=== PATIENT | male | born 1965 | race Caucasian/White ===

== ENCOUNTER 2020-10-31 11:50 | Inpatient (IN) | payer MEDICAID, SELFPAY ==
[2020-10-31 13:17] VITALS: BP 198/96; PULSE 89; RESP 18; TEMP 36.6; O2SAT 98; BMI 32.8
--- NOTE | 2020-10-31 16:06 | ED.ABDPAIN ---
HPI - Abdominal Pain General Chief Complaint: Abdominal Pain Stated Complaint: abdominal pain Time Seen by Provider: 10/31/20 15:55 Source: patient Mode of arrival: ambulatory History of Present Illness HPI narrative: 54-year-old male with past medical history of diabetes presenting to the ED complaining of diffuse abdominal pain since this morning with associated nausea/dry heaving. Denies fever, chills, diarrhea/constipation, dysuria/hematuria, hx abdominal surgery, suspicious food intake MD elicited complaint: abdominal pain Related Data Allergies Allergy/AdvReac Type Severity Reaction Status Date / Time apple [APPLES] Allergy Unknown ITCHY MOUTH Unverified 08/05/20 17:26 tree nut [TREE NUT] Allergy Unknown ITCHY MOUTH Unverified 08/05/20 17:26 FRUIT, PITTED Allergy Unknown ITCHY MOUTH Uncoded 08/05/20 17:26 Review of Systems Review of Systems Constitutional: No Weight loss, No Fever, No Chills Cardiovascular: No Chest Pain, No SOB, No Edema, No Palpitations Respiratory: No Cough, No Sputum Gastrointestinal: + Nausea, No Vomiting, No Diarrhea, No Constipation, + Abdominal pain Genitourinary: No Dysuria, No Urinary Frequency, No Hematuria, No testicular/penile pain, No Flank Pain, No Urinary Flow Changes Musculoskeletal: No joint pain, No Myalgias, No Joint Swelling Skin: No Skin Lesions, No rash Yes all other systems are reviewed and are negative Physical Exam Vital Signs: Vital Signs: Last Vital Signs Temp 98.3 F 10/31/20 17:52 Pulse 63 10/31/20 17:52 Resp 18 10/31/20 17:52 BP 131/71 10/31/20 17:52 Pulse Ox 98 10/31/20 17:52 Body Mass Index 32.8 Const: General: cooperative and healthy appearing Orientation/consciousness: patient oriented x3 Limitations: no limitations HENMT: Head: Yes normal to inspection Ears: hearing grossly normal bilaterally General nose exam: Normal external nose present Face and sinus: Yes normal facial exam Eyes: General: appearance normal, both eyes and all related structures EOM: EOMs intact bilaterally Neck: Neck: Yes normal visual inspection and Yes no meningeal signs Resp: Effort & Inspection: normal respiratory effort Auscultation: clear to auscultation bilaterally, no rhonchi and no wheezes Cardio: Rate: regular rate Heart sounds: S1 normal heart sound present and S2 normal heart sound present GI: Inspection: Yes normal to inspection Palpation (GI): Soft to palpation, Tenderness to palpation present (GI) (diffusely), no guarding and not rigid : General: Yes no CVA tenderness Back/Spine/Pelvis: Back: no CVA tenderness Skin: Rashes: no rashes Wounds: no wounds Neuro: General: patient oriented x3 and no meningeal signs Gait exam (Neuro): Normal gait present Extrem: General: Yes normal to inspection Course Course Course Narrative: Mild leukocytosis of 13.4, VINCE with creatinine 1.58, BUN 19, ALT also elevated UA with blood/not infected CT showing left grade 2 hydroureteronephrosis and perinephric stranding secondary to a 4 mm obstructive UVJ calculus > urology consulted 1914- Dr. Gregg recommended admission, IVF, IV antibiotics, and will likely go to OR tomorrow MDM - Abdominal Pain Lab Data Result diagrams: 10/31/20 16:34 10/31/20 16:34 Labs: Lab Results 10/31/20 10/31/20 10/31/20 Range/Units 16:34 16:34 16:34 WBC 13.4 H (4.8-10.8) X10*3/uL RBC 5.08 (4.60-5.80) X10*6/uL Hgb 14.6 (14.0-18.0) g/dl Hct 43.9 (42-52) % MCV 86.4 (80-98) fL MCH 28.7 (27.0-33.0) pg MCHC 33.3 (31.0-36.0) g/dl RDW 13.1 (11.0-16.0) % Plt Count 259 (160-400) X10*3/uL MPV 10.0 (9.4-12.4) fL Immature Gran % (Auto) 0.5 H (0.0-0.4) % Neut % (Auto) 90.1 H (45-73) % Lymph % (Auto) 5.1 L (20-40) % [place] % (Auto) 4.1 (2-11) % Eos % (Auto) 0.1 (0-4) % Baso % (Auto) 0.1 (0-2) % Lymph # (Auto) 0.7 L (1.2-4.9) X10*3/uL [place] # (Auto) 0.6 (0.1-1.2) X10*3/uL Eos # (Auto) 0.0 (0.0-0.4) X10*3/uL Baso # (Auto) 0.0 (0.0-0.2) X10*3/uL Abs Immat Gran (auto) 0.07 H (0.00-0.03) X10*3/uL Absolute Neuts (auto) 12.1 H (2.0-8.3) X10*3/uL Absolute Nucleated RBC 0.000 (0.0-0.012) X10*3/uL Nucleated RBC % (auto) 0.0 (0.0-0.2) /100WBC Smear Tech's Comments VERIFIED Hold Blue Top SEE NOTE Sodium 138 (135-145) mmol/L Potassium 4.6 (3.3-5.1) mmol/l Chloride 103 (96-108) mmol/L Carbon Dioxide 25 (22-29) mmol/L Anion Gap 15 (12-20) BUN 19 H (9-16) mg/dL Creatinine 1.58 H (0.5-1.4) mg/dL Estim Creat Clear Calc 60.0 Estimated GFR 46 Random Glucose 166 H (60-115) mg/dL Calcium 9.0 (8.4-10.2) mg/dL Magnesium (1.6-2.6) mg/dL Total Bilirubin 1.0 (0.0-1.0) mg/dL Direct Bilirubin 0.4 (0.0-0.5) mg/dL AST 30 (5-37) U/L ALT 65 H (0-40) U/L Alkaline Phosphatase 71 (39-117) U/L Total Protein 7.3 (6.5-8.0) g/dL Albumin 4.6 (3.5-5.0) g/dL Lipase (8-78) U/L Urine Color Urine Appearance Urine pH (5.0-8.0) Ur Specific [place] (1.005-1.025) Urine Protein (NEG-TRACE) MG/DL Urine Glucose (UA) (NEG) MG/DL Urine Ketones (NEG) MG/DL Urine Blood (NEG) Urine Nitrite (NEG) Ur Leukocyte Esterase (NEG) Urine RBC (0) /HPF Urine WBC (0-4) /HPF Ur Squamous Epith Cells /LPF Urine Bacteria /LPF 10/31/20 10/31/20 Range/Units 16:34 16:34 WBC (4.8-10.8) X10*3/uL RBC (4.60-5.80) X10*6/uL Hgb (14.0-18.0) g/dl Hct (42-52) % MCV (80-98) fL MCH (27.0-33.0) pg MCHC (31.0-36.0) g/dl RDW (11.0-16.0) % Plt Count (160-400) X10*3/uL MPV (9.4-12.4) fL Immature Gran % (Auto) (0.0-0.4) % Neut % (Auto) (45-73) % Lymph % (Auto) (20-40) % [place] % (Auto) (2-11) % Eos % (Auto) (0-4) % Baso % (Auto) (0-2) % Lymph # (Auto) (1.2-4.9) X10*3/uL [place] # (Auto) (0.1-1.2) X10*3/uL Eos # (Auto) (0.0-0.4) X10*3/uL Baso # (Auto) (0.0-0.2) X10*3/uL Abs Immat Gran (auto) (0.00-0.03) X10*3/uL Absolute Neuts (auto) (2.0-8.3) X10*3/uL Absolute Nucleated RBC (0.0-0.012) X10*3/uL Nucleated RBC % (auto) (0.0-0.2) /100WBC Smear Tech's Comments Hold Blue Top Sodium (135-145) mmol/L Potassium (3.3-5.1) mmol/l Chloride (96-108) mmol/L Carbon Dioxide (22-29) mmol/L Anion Gap (12-20) BUN (9-16) mg/dL Creatinine (0.5-1.4) mg/dL Estim Creat Clear Calc Estimated GFR Random Glucose (60-115) mg/dL Calcium (8.4-10.2) mg/dL Magnesium 1.7 (1.6-2.6) mg/dL Total Bilirubin (0.0-1.0) mg/dL Direct Bilirubin (0.0-0.5) mg/dL AST (5-37) U/L ALT (0-40) U/L Alkaline Phosphatase (39-117) U/L Total Protein (6.5-8.0) g/dL Albumin (3.5-5.0) g/dL Lipase 22 (8-78) U/L Urine Color YELLOW Urine Appearance CLEAR Urine pH 5.5 (5.0-8.0) Ur Specific [place] >= 1.030 H (1.005-1.025) Urine Protein NEG (NEG-TRACE) MG/DL Urine Glucose (UA) 100 H (NEG) MG/DL Urine Ketones NEG (NEG) MG/DL Urine Blood 2+ H (NEG) Urine Nitrite NEG (NEG) Ur Leukocyte Esterase NEG (NEG) Urine RBC 5-9 H (0) /HPF Urine WBC 0 (0-4) /HPF Ur Squamous Epith Cells TRACE /LPF Urine Bacteria NONE /LPF Discharge Plan Discharge Clinical Impression: Hydronephrosis with renal calculous obstruction Patient Disposition: Admitted As Inpatient [facility] Past Medical History Attestation statement: The following information was validated with the patient. Medical History (Updated 10/31/20 @ 19:30 by TIMOTHY Baker) Diabetes mellitus, type 2 Social History Social History Advance Directives: No Advance Directives Information Provided: No
[2020-10-31 16:31] VITALS: BP 176/82; PULSE 65; RESP 16; TEMP 37; O2SAT 99
[2020-10-31] MEDS: ondansetron HCL 4 MG/2 ML VIAL IVPUSH (16:36)
[2020-10-31] MEDS: 0.9 % Sodium Chloride 1,000 ML 999 ML IVCONT ×2 (16:36→20:02)
[2020-10-31] MEDS: Ketorolac Tromethamine 15 MG/ML VIAL IVPUSH ×2 (16:36→22:04)
--- NOTE | 2020-10-31 16:40 | CT_ITS ---
EXAMINATION: CT ABDOMEN AND PELVIS WITHOUT CONTRAST CLINICAL INFORMATION: Diffuse abdominal pain. Nausea. COMPARISON: None. TECHNIQUE: Contiguous axial thin section helical images of the abdomen and pelvis were performed without oral or IV contrast. The data set was reformatted in the coronal and sagittal planes and reviewed on an independent workstation. DLP: 667 mGy-cm. FINDINGS: The visualized lung bases are clear. The visualized portions of the heart are unremarkable. There is a small hiatal hernia. The liver is of normal size and mild diffuse decreased attenuation without focal lesions nor intrahepatic biliary ductal dilation. A normal gallbladder is identified. There is no wall thickening or discernible pericholecystic fluid. The spleen, pancreas, adrenal glands are unremarkable. Both kidneys are of normal size and attenuation. There is left grade 2 hydroureteronephrosis with left perinephric stranding. There is a 4 mm obstructive left UVJ calculus. There is no abdominal free fluid. There is neither mesenteric nor retroperitoneal lymphadenopathy. Normal unopacified loops of small and large bowel are identified. There is no pelvic free fluid. The urinary bladder is unremarkable. There is neither pelvic nor inguinal lymphadenopathy. Bone windows: Neither sclerotic nor lytic bone lesions are identified. CT/CT abdomen pelvis wo con IMPRESSION: Left grade 2 hydroureteronephrosis and perinephric stranding secondary to a 4 mm obstructive UVJ calculus. Hepatic steatosis. Automated exposure control (Care Dose) Adjustment of the mA and/or kv according to patient size (this includes techniques or standardized protocols for targeted exams where dose is matched to indication / reason for exam; i.e. extremities or head).
[2020-10-31 16:46] LABS: Basophils Percent Auto 0.1 % (0-2); Eosinophils Percent Auto 0.1 % (0-4); Hematocrit 43.9 % (42-52); Hemoglobin 14.6 g/dl (14.0-18.0); Imm Gran Abs Auto 0.07 X10*3/uL (0.00-0.03); Imm Gran Pct Auto 0.5 % (0.0-0.4); Lymphocytes Absolute Auto 0.7 X10*3/uL (1.2-4.9); Lymphocytes Percent Auto 5.1 % (20-40); MANUAL DIFF FLAG SCAN; Mean Corpuscular HGB Conc 33.3 g/dl (31.0-36.0); Mean Corpuscular Hemoglobin 28.7 pg (27.0-33.0); Mean Corpuscular Volume 86.4 fL (80-98); Monocytes Absolute Auto 0.6 X10*3/uL (0.1-1.2); Monocytes Percent Auto 4.1 % (2-11); Neutrophils Absolute Auto 12.1 X10*3/uL (2.0-8.3); Neutrophils Percent Auto 90.1 % (45-73); Platelet Count 259 X10*3/uL (160-400); Red Blood Count 5.08 X10*6/uL (4.60-5.80); Red Cell Distribution Width 13.1 % (11.0-16.0); SCAN SMEAR FLAG 1; White Blood Count 13.4 X10*3/uL (4.8-10.8)
[2020-10-31 16:50] LABS: Glucose Urine UA 100 MG/DL (NEG); Leukocyte Esterase Urine NEG (NEG); Nitrite Urine NEG (NEG); PH 5.5 (5.0-8.0); Specific Gravity - Urine >= 1.030 (1.005-1.025); Urine Blood 2+ (NEG); Urine Ketones NEG (NEG); Urine Protein NEG (NEG-TRACE)
[2020-10-31 16:51] LABS: Appearance Urine CLEAR; Color Urine YELLOW
[2020-10-31 17:03] LABS: Squamous Epithelial Cell Urine TRACE /LPF; WBC Urine 0 /HPF (0-4)
[2020-10-31 17:20] LABS: Alanine Aminotransferase 65 U/L (0-40); Albumin Level 4.6 g/dL (3.5-5.0); Alkaline Phosphatase 71 U/L (39-117); Anion Gap 15 (12-20); Aspartate Amino Transferase 30 U/L (5-37); Bilirubin Direct 0.4 mg/dL (0.0-0.5); Blood Urea Nitrogen 19 mg/dL (9-16); Carbon Dioxide 25 mmol/L (22-29); Chloride 103 mmol/L (96-108); Estimated Glomerular Filt Rate 46; Glucose Random 166 mg/dL (60-115); Lipase 22 U/L (8-78); Magnesium 1.7 mg/dL (1.6-2.6); Potassium 4.6 mmol/l (3.3-5.1); Sodium 138 mmol/L (135-145); Total Protein 7.3 g/dL (6.5-8.0)
[2020-10-31 17:29] LABS: SLIDE REVIEW VERIFIED
[2020-10-31 17:52] VITALS: BP 131/71; PULSE 63; RESP 18; TEMP 36.8; O2SAT 98
--- NOTE | 2020-10-31 19:48 | PM.IMHP ---
History of Present Illness Date of Service: 10/31/20 Chief Complaint: Abdominal pain 54 y/o male with PMHx of DM and MARIO who presented from home due to abdominal pain. Per history provided by the patient, today woke up with a severe pain in the left side of his abdomen, none radiating, not associated with fever, chest pain, SOB or difficulty urinating. Patient denies any hx of previous kidney stones in the past. On presentation patient was noted to be hypertensive which improved with pain control to 131/71 mmHg and HR of 63. No evidence of fever, leukocytosis of 13.8 with left shift, creatinine of 1.58, CT abdomen showing left ureteral obstructing stone of 4 mm with associated hydroureteronephrosis and fat stranding, Ua negative for UTI. Patient was given one dose of Rocephin, flomax, fluids and pain control. Urology was consulted per ED Dr Gregg who recommends medicine admission and he will be a data quality consultant in the am for planned procedure. Patient seen and examined at the bedside, laying down in bed in no acute distress. ROS as above otherwise negative. Physical exam unremarkable. PMHX; DM and MARIO PSX; none Toxic habits: no hx of alcohol abuse, smoking or IVDA Review of Systems Constitutional: Constitutional: Reports as per [facility] Medical History Diabetes mellitus, type 2 Social History Advance Directives: No Advance Directives Information Provided: No Meds Allergies Allergy/AdvReac Type Severity Reaction Status Date / Time apple [APPLES] Allergy Unknown ITCHY MOUTH Unverified 08/05/20 17:26 tree nut [TREE NUT] Allergy Unknown ITCHY MOUTH Unverified 08/05/20 17:26 FRUIT, PITTED Allergy Unknown ITCHY MOUTH Uncoded 08/05/20 17:26 Physical Exam Vital Signs and Narrative: Vital Signs: Last Vital Signs Temp 98.3 F 10/31/20 17:52 Pulse 63 10/31/20 17:52 Resp 18 10/31/20 17:52 BP 131/71 10/31/20 17:52 Pulse Ox 98 10/31/20 17:52 Body Mass Index 32.8 Const: General: cooperative, comfortable and no acute distress Orientation/consciousness: oriented to person, oriented to place and oriented to time HENMT: Head: Yes normal to inspection Eyes: General: appearance normal, both eyes and all related structures Neck: Yes normal visual inspection Chest: Chest palpation & inspection: normal inspection of the chest Resp: Effort & Inspection: normal respiratory effort Auscultation: clear to auscultation bilaterally Cardio: Jugular venous distension: no JVD Rate: regular rate Rhythm: regular rhythm Heart sounds: S1 normal heart sound present and S2 normal heart sound present GI: Inspection: Yes normal to inspection Skin: General skin exam: no rashes or lesions noted Neuro: General: oriented to person, oriented to place and oriented to time Cognition (Neuro): normal cognition Results Labs CBC and Chem 7: 10/31/20 16:34 10/31/20 16:34 Labs: Laboratory Results - last 24 hr 10/31/20 10/31/20 10/31/20 16:34 16:34 16:34 MCV 86.4 MCH 28.7 MCHC 33.3 RDW 13.1 Plt Count 259 MPV 10.0 Immature Gran % (Auto) 0.5 H Neut % (Auto) 90.1 H Lymph % (Auto) 5.1 L [place] % (Auto) 4.1 Eos % (Auto) 0.1 Baso % (Auto) 0.1 Lymph # (Auto) 0.7 L [place] # (Auto) 0.6 Eos # (Auto) 0.0 Baso # (Auto) 0.0 Abs Immat Gran (auto) 0.07 H Absolute Neuts (auto) 12.1 H Absolute Nucleated RBC 0.000 Nucleated RBC % (auto) 0.0 Smear Tech's Comments VERIFIED Hold Blue Top SEE NOTE Anion Gap 15 Estim Creat Clear Calc 60.0 Estimated GFR 46 Random Glucose 166 H Calcium 9.0 Magnesium Total Bilirubin 1.0 Direct Bilirubin 0.4 AST 30 ALT 65 H Alkaline Phosphatase 71 Total Protein 7.3 Albumin 4.6 Lipase Urine Color Urine Appearance Urine pH Ur Specific [place] Urine Protein Urine Glucose (UA) Urine Ketones Urine Blood Urine Nitrite Ur Leukocyte Esterase Urine RBC Urine WBC Ur Squamous Epith Cells Urine Bacteria 10/31/20 10/31/20 16:34 16:34 MCV MCH MCHC RDW Plt Count MPV Immature Gran % (Auto) Neut % (Auto) Lymph % (Auto) [place] % (Auto) Eos % (Auto) Baso % (Auto) Lymph # (Auto) [place] # (Auto) Eos # (Auto) Baso # (Auto) Abs Immat Gran (auto) Absolute Neuts (auto) Absolute Nucleated RBC Nucleated RBC % (auto) Smear Tech's Comments Hold Blue Top Anion Gap Estim Creat Clear Calc Estimated GFR Random Glucose Calcium Magnesium 1.7 Total Bilirubin Direct Bilirubin AST ALT Alkaline Phosphatase Total Protein Albumin Lipase 22 Urine Color YELLOW Urine Appearance CLEAR Urine pH 5.5 Ur Specific [place] >= 1.030 H Urine Protein NEG Urine Glucose (UA) 100 H Urine Ketones NEG Urine Blood 2+ H Urine Nitrite NEG Ur Leukocyte Esterase NEG Urine RBC 5-9 H Urine WBC 0 Ur Squamous Epith Cells TRACE Urine Bacteria NONE Imaging Radiologist's Impressions: Impressions Abdomen/Pelvis CT 10/31/20 16:40 IMPRESSION: Left grade 2 hydroureteronephrosis and perinephric stranding secondary to a 4 mm obstructive UVJ calculus. Hepatic steatosis. Automated exposure control (Care Dose) Adjustment of the mA and/or kv according to patient size (this includes techniques or standardized protocols for targeted exams where dose is matched to indication / reason for exam; i.e. extremities or head). Assessment and Plan (1) Hydronephrosis with renal calculous obstruction: Status: Acute Continue with IV hydration Pain control Will not continue with antbx as there is no evidence of underlying infection Rest of the management per urology (2) MARIO (obstructive sleep apnea): Status: Acute continue with CPAP at night (3) Diabetes mellitus, type 2: Status: Acute Insulin regimen Hold PO hypoglycemic meds
[2020-10-31] MEDS: cefTRIAXone sodium 1 GM in 0.9 % Sodium Chloride 50 ML IV (20:01)
[2020-10-31] MEDS: Tamsulosin HCL 0.4 MG CAPSULE PO (20:01)
[2020-10-31 20:28] LABS: COVID-19 Test Negative (Negative)
[2020-10-31] MEDS: 0.9 % Sodium Chloride 1,000 ML 100 ML IVCONT (20:56)
[2020-10-31] MEDS: Heparin Sodium,Porcine 5,000 UNIT/ML VIAL 5000 UNIT SUBCUT (20:57)
[2020-10-31 21:16] LABS: Glucose, Whole Blood 107 mg/dL (60-115)
--- NOTE | 2020-10-31 22:26 | PC.NURSE ---
Pt requested and given night time snack of crackers w/ peanut butter, milk, ate 100%. Medicated per emar for 810 llu abd pain. pending bed assignment/uro consult in AM. Pt aware and agreeable to plan of care. Independent w/ home cpap.
[2020-10-31 22:28] VITALS: BP 124/83; PULSE 87; RESP 16; TEMP 36.7; O2SAT 98
[2020-11-01] VITALS (10 sets, daily range): BP systolic 112–149; BP diastolic 59–86; PULSE 54–61; RESP 14–20; TEMP 36–36.6; O2SAT 95–99; BMI 32.8
[2020-11-01] MEDS: Heparin Sodium,Porcine 5,000 UNIT/ML VIAL 5000 UNIT SUBCUT (06:32)
[2020-11-01 07:02] LABS: MANUAL DIFF FLAG NO
[2020-11-01 07:22] LABS: Basophils Percent Auto 0.3 % (0-2); Eosinophils Absolute Auto 0.2 X10*3/uL (0.0-0.4); Eosinophils Percent Auto 2.5 % (0-4); Hematocrit 38.4 % (42-52); Hemoglobin 12.4 g/dl (14.0-18.0); Imm Gran Abs Auto 0.02 X10*3/uL (0.00-0.03); Imm Gran Pct Auto 0.3 % (0.0-0.4); Lymphocytes Absolute Auto 1.1 X10*3/uL (1.2-4.9); Mean Corpuscular HGB Conc 32.3 g/dl (31.0-36.0); Mean Corpuscular Hemoglobin 28.2 pg (27.0-33.0); Mean Corpuscular Volume 87.5 fL (80-98); Monocytes Absolute Auto 0.6 X10*3/uL (0.1-1.2); Monocytes Percent Auto 9.6 % (2-11); Neutrophils Absolute Auto 4.4 X10*3/uL (2.0-8.3); Neutrophils Percent Auto 69.3 % (45-73); Platelet Count 198 X10*3/uL (160-400); Red Blood Count 4.39 X10*6/uL (4.60-5.80); Red Cell Distribution Width 13.2 % (11.0-16.0); White Blood Count 6.4 X10*3/uL (4.8-10.8)
[2020-11-01 07:39] LABS: Anion Gap 12 (12-20); Blood Urea Nitrogen 21 mg/dL (9-16); Calcium 7.8 mg/dL (8.4-10.2); Carbon Dioxide 24 mmol/L (22-29); Chloride 108 mmol/L (96-108); Creatinine Clr Calc Pharmacy 51.3; Estimated Glomerular Filt Rate 39; Glucose Random 135 mg/dL (60-115); Potassium 4.7 mmol/l (3.3-5.1); Sodium 139 mmol/L (135-145)
--- NOTE | 2020-11-01 09:59 | P.CNUR_ITS ---
History of Present Illness Consult details Consult date: 11/01/20 Narrative: 54-year-old male. Admitted 11/01/2020. Had 2 days of left-sided pain down his flank to his anterior abdomen. Nausea and dry heaving. Denies fevers chills or hematuria. None diabetic. White cell count on admission 13.8 with left shift. Creatinine 1.6. CT shows distal left ureteric obstructing stone 4 mm with associated hydroureteronephrosis. Discussion today regarding intervention. Currently pain is well managed at 12/29. Recommend ureteroscopy, laser lithotripsy, stone basketing and stent placement. [facility] Past Medical History Medical History (Updated 10/31/20 @ 19:56 by Mauricio Dickinson MD) Diabetes mellitus, type 2 Social History Social History Alcohol intake: never Smoked in Last 30 Days: No Use of substances other than those prescribed or required for medical reasons: No Advance Directives: No Advance Directives Information Provided: No Meds Allergies Allergy/AdvReac Type Severity Reaction Status Date / Time apple [APPLES] Allergy Unknown ITCHY MOUTH Unverified 08/05/20 17:26 tree nut [TREE NUT] Allergy Unknown ITCHY MOUTH Unverified 08/05/20 17:26 FRUIT, PITTED Allergy Unknown ITCHY MOUTH Uncoded 08/05/20 17:26 Home Medications Medication Instructions Recorded Confirmed Type metformin 1,000 mg PO BID 10/31/20 10/31/20 History sitagliptin [Januvia] 100 mg PO DAILY 10/31/20 10/31/20 History Physical Exam Vital Signs: Vital Signs: Last Vital Signs Temp 97 F 11/01/20 08:00 Pulse 60 11/01/20 08:00 Resp 20 11/01/20 08:00 BP 140/86 H 11/01/20 08:00 Pulse Ox 99 11/01/20 08:00 Body Mass Index 32.8 Const: General: cooperative, healthy appearing, comfortable and no acute distress Nutritional Appearance: average body habitus Orientation/consciousness: oriented to person, oriented to place and oriented to time Eyes: General: appearance normal, both eyes and all related structures Chest: Chest palpation & inspection: normal inspection of the chest Resp: Effort & Inspection: normal respiratory effort Cardio: Rate: regular rate GI: Inspection: Yes normal to inspection Skin: Hair: normal Neuro: General: oriented to person, oriented to place and oriented to time Extrem: General: Yes normal to inspection Results Labs Result diagrams: 11/01/20 06:56 11/01/20 06:56 Labs: Abnormal lab results 10/31/20 10/31/20 10/31/20 Range/Units 16:34 16:34 16:34 WBC 13.4 H (4.8-10.8) X10*3/uL RBC (4.60-5.80) X10*6/uL Hgb (14.0-18.0) g/dl Hct (42-52) % Immature Gran % (Auto) 0.5 H (0.0-0.4) % Neut % (Auto) 90.1 H (45-73) % Lymph % (Auto) 5.1 L (20-40) % Lymph # (Auto) 0.7 L (1.2-4.9) X10*3/uL Abs Immat Gran (auto) 0.07 H (0.00-0.03) X10*3/uL Absolute Neuts (auto) 12.1 H (2.0-8.3) X10*3/uL BUN 19 H (9-16) mg/dL Creatinine 1.58 H (0.5-1.4) mg/dL Random Glucose 166 H (60-115) mg/dL Calcium (8.4-10.2) mg/dL ALT 65 H (0-40) U/L Ur Specific [place] >= 1.030 H (1.005-1.025) Urine Glucose (UA) 100 H (NEG) MG/DL Urine Blood 2+ H (NEG) Urine RBC 5-9 H (0) /HPF 11/01/20 11/01/20 Range/Units 06:56 06:56 WBC (4.8-10.8) X10*3/uL RBC 4.39 L (4.60-5.80) X10*6/uL Hgb 12.4 L (14.0-18.0) g/dl Hct 38.4 L (42-52) % Immature Gran % (Auto) (0.0-0.4) % Neut % (Auto) (45-73) % Lymph % (Auto) 18.0 L (20-40) % Lymph # (Auto) 1.1 L (1.2-4.9) X10*3/uL Abs Immat Gran (auto) (0.00-0.03) X10*3/uL Absolute Neuts (auto) (2.0-8.3) X10*3/uL BUN 21 H (9-16) mg/dL Creatinine 1.85 H (0.5-1.4) mg/dL Random Glucose 135 H (60-115) mg/dL Calcium 7.8 L D (8.4-10.2) mg/dL ALT (0-40) U/L Ur Specific [place] (1.005-1.025) Urine Glucose (UA) (NEG) MG/DL Urine Blood (NEG) Urine RBC (0) /HPF Short CBC 10/31/20 11/01/20 Range/Units 16:34 06:56 WBC 13.4 H 6.4 (4.8-10.8) X10*3/uL Hgb 14.6 12.4 L (14.0-18.0) g/dl Hct 43.9 38.4 L (42-52) % Plt Count 259 198 (160-400) X10*3/uL BMP 10/31/20 11/01/20 16:34 06:56 Sodium 138 139 Potassium 4.6 4.7 Chloride 103 108 Carbon Dioxide 25 24 BUN 19 H 21 H Creatinine 1.58 H 1.85 H Calcium 9.0 7.8 L D Liver Function 10/31/20 Range/Units 16:34 Total Bilirubin 1.0 (0.0-1.0) mg/dL Direct Bilirubin 0.4 (0.0-0.5) mg/dL AST 30 (5-37) U/L ALT 65 H (0-40) U/L Alkaline Phosphatase 71 (39-117) U/L Albumin 4.6 (3.5-5.0) g/dL Urine 10/31/20 Range/Units 16:34 Urine Color YELLOW Urine Appearance CLEAR Urine pH 5.5 (5.0-8.0) Ur Specific [place] >= 1.030 H (1.005-1.025) Urine Protein NEG (NEG-TRACE) MG/DL Urine Glucose (UA) 100 H (NEG) MG/DL All other labs normal. Left grade 2 hydroureteronephrosis and perinephric stranding secondary to a 4 mm obstructive UVJ calculus Assessment and Plan (1) Hydronephrosis with renal calculous obstruction: Status: Acute Ureteroscopy We discussed the nature of the decision and reasonable alternatives for performing the above surgery. Interventions include chemical dissolution, ESWL, ureteroscopy with laser lithotripsy and stent placement, PCNL. Options such as medical therapy were discussed. The relative uncertainties and benefits related to each alternate procedure were adequately discussed. General surgical risks including, but not limited to, pain, bleeding, infection, myocardial infarction, pulmonary embolus, deep vein thrombosis and cerebrovascular accident which may result in further hospitalization were discussed. Full disclosure of the procedure as well as all major risks, benefits and complications were discussed including but not limited to damage to the urethra, bladder and kidney infection, damage to the ureter, stent migration or malposi tion, scarring to the renal pelvis, remnant stone fragments, subsequent stone passage with need for secondary procedures. The overall secondary procedure rate is approximately 10-15%. The success rate of the procedure was discussed. Success of the procedure in the short-term does not necessarily guarantee that long-term success will be maintained. Suitable follow up will need to be maintained. The patient showed understanding of discussion and wishes to proceed with - cystoscopy, retrograde, ureteroscopy, possible lithotripsy/stone basketing and stent on the left side
[2020-11-01] MEDS: 0.9 % Sodium Chloride Flush 3 ML SYRINGE IVFLUSH (10:04)
[2020-11-01] MEDS: 0.9 % Sodium Chloride 1,000 ML 100 ML IVCONT (10:04)
[2020-11-01 10:30] LABS: Glucose, Whole Blood 136 mg/dL (60-115)
--- NOTE | 2020-11-01 11:02 | MHC.CM.PN ---
PT 10/31/20, PT WILL DISCHARGE TONIGHT OR TOMORROW AFTER BLOCKED KIDNEY STONE REMOVAL, HOME W/NO SERVICES, TO TRANSPORT PT. SPOUSE: BAYLEE BARNES [phone]. DME: CPAP W/ JULIO, PT HAS WITH HIM AT BEDSIDE.
--- NOTE | 2020-11-01 11:50 | MHC.SHP ---
Pre-Procedural Eval Section A The patient is an INPATIENT: Yes Changes since office visit: No Cold of Flu in the past 2 weeks, No New Medical Problems, No Changes in Medication and No Patient answered all questions The History & Physical has been completed within 30 days and I have reviewed it.: Yes Section B Chief Complaint: obstructive uropathy Allergies: Allergies Allergy/AdvReac Type Severity Reaction Status Date / Time apple [APPLES] Allergy Unknown ITCHY MOUTH Unverified 08/05/20 17:26 tree nut [TREE NUT] Allergy Unknown ITCHY MOUTH Unverified 08/05/20 17:26 FRUIT, PITTED Allergy Unknown ITCHY MOUTH Uncoded 08/05/20 17:26 Plan Patient has been examined and remains a candidate for the planned procedure
[2020-11-01] MEDS: levoFLOXacin 500 MG TABLET PO (12:12)
[2020-11-01] MEDS: Lactated Ringers 1,000 ML 50 ML IVCONT (12:17)
[2020-11-01 12:19] LABS: Glucose, Whole Blood 118 mg/dL (60-115)
--- NOTE | 2020-11-01 12:21 | P.CONAN_ITS ---
[facility] Past Medical History Medical History Diabetes mellitus, type 2 Surgical History Surgical History Hx of colonoscopy Social History Social History Household Members: Spouse and Children Housing: House Do you presently have visiting nurse or other home services: No Alcohol intake: never Smoking Status: Former smoker Tobacco Type: Cigarette Packs Per Day: 1 Cigarettes Per Day: 20.0 Years Smoked: 10 Smoked in Last 30 Days: No Smoking Quit Date: 11/19/1994 Patient Interested in Nicotine Replacement: No Patient Given Instructions on How to Stop Smoking: No Second Hand Smoke Exposure: No Use of substances other than those prescribed or required for medical reasons: Yes Substance Use Type: Marijuana Substance Use Frequency: Daily Last Used Substance: Days (ago) Currently Displaying Signs/Symptoms of Drug Intoxication Withdrawal: No Any prior treatment program specific to substance use: No Have you been hit, kicked, punched, or otherwise hurt by someone within the past year? If so, by whom?: No Do you feel safe in your current relationship?: Yes Is there a partner from a previous relationship who is making you feel unsafe now?: No Are you made to feel afraid or neglected: No Advance Directives: No (Unsure) Advance Directives Information Provided: No Do you have thoughts of harming others: None Do you have a plan to hurt others: No Plan Recently lost weight without trying: No service: No Current occupational status: employed Meds Allergies Allergy/AdvReac Type Severity Reaction Status Date / Time apple [APPLES] Allergy Unknown ITCHY MOUTH Verified 11/01/20 12:09 tree nut [TREE NUT] Allergy Unknown ITCHY MOUTH Verified 11/01/20 12:09 FRUIT, PITTED Allergy Unknown ITCHY MOUTH Uncoded 08/05/20 17:26 Home Medications Medication Instructions Recorded Confirmed Type metformin 1,000 mg PO BID 10/31/20 10/31/20 History sitagliptin [Januvia] 100 mg PO DAILY 10/31/20 10/31/20 History Exam Exam Date and Time: November 01, 2020 1221 Height,Weight and Vital Signs: Height 5 ft 7 in Weight 95 kg Last Vital Signs Temp 97.9 F 11/01/20 12:03 Pulse 55 12/14/20 12:03 Resp 16 11/01/20 12:03 BP 143/83 H 11/01/20 12:03 Pulse Ox 99 11/01/20 12:03 Pertinent Lab Results Pertinent Lab Results: Laboratory Tests 10/31/20 10/31/20 10/31/20 16:34 16:34 16:34 WBC 13.4 H RBC 5.08 Hgb 14.6 Hct 43.9 MCV 86.4 MCH 28.7 MCHC 33.3 RDW 13.1 Plt Count 259 MPV 10.0 Immature Gran % (Auto) 0.5 H Neut % (Auto) 90.1 H Lymph % (Auto) 5.1 L [place] % (Auto) 4.1 Eos % (Auto) 0.1 Baso % (Auto) 0.1 Lymph # (Auto) 0.7 L [place] # (Auto) 0.6 Eos # (Auto) 0.0 Baso # (Auto) 0.0 Abs Immat Gran (auto) 0.07 H Absolute Neuts (auto) 12.1 H Absolute Nucleated RBC 0.000 Nucleated RBC % (auto) 0.0 Smear Tech's Comments VERIFIED Hold Blue Top SEE NOTE Sodium 138 Potassium 4.6 Chloride 103 Carbon Dioxide 25 Anion Gap 15 BUN 19 H Creatinine 1.58 H Estim Creat Clear Calc 60.0 Estimated GFR 46 POC Glucose Random Glucose 166 H Calcium 9.0 Magnesium Total Bilirubin 1.0 Direct Bilirubin 0.4 AST 30 ALT 65 H Alkaline Phosphatase 71 Total Protein 7.3 Albumin 4.6 Lipase Urine Color Urine Appearance Urine pH Ur Specific [place] Urine Protein Urine Glucose (UA) Urine Ketones Urine Blood Urine Nitrite Ur Leukocyte Esterase Urine RBC Urine WBC Ur Squamous Epith Cells Urine Bacteria COVID-19 (GUALBERTO) COVID-19 Clin Com 10/31/20 10/31/20 10/31/20 16:34 16:34 20:09 WBC RBC Hgb Hct MCV MCH MCHC RDW Plt Count MPV Immature Gran % (Auto) Neut % (Auto) Lymph % (Auto) [place] % (Auto) Eos % (Auto) Baso % (Auto) Lymph # (Auto) [place] # (Auto) Eos # (Auto) Baso # (Auto) Abs Immat Gran (auto) Absolute Neuts (auto) Absolute Nucleated RBC Nucleated RBC % (auto) Smear Tech's Comments Hold Blue Top Sodium Potassium Chloride Carbon Dioxide Anion Gap BUN Creatinine Estim Creat Clear Calc Estimated GFR POC Glucose Random Glucose Calcium Magnesium 1.7 Total Bilirubin Direct Bilirubin AST ALT Alkaline Phosphatase Total Protein Albumin Lipase 22 Urine Color YELLOW Urine Appearance CLEAR Urine pH 5.5 Ur Specific [place] >= 1.030 H Urine Protein NEG Urine Glucose (UA) 100 H Urine Ketones NEG Urine Blood 2+ H Urine Nitrite NEG Ur Leukocyte Esterase NEG Urine RBC 5-9 H Urine WBC 0 Ur Squamous Epith Cells TRACE Urine Bacteria NONE COVID-19 (GUALBERTO) Negative COVID-19 Contentful Com See Note 10/31/20 11/01/20 11/01/20 21:01 06:56 06:56 WBC 6.4 RBC 4.39 L Hgb 12.4 L Hct 38.4 L MCV 87.5 MCH 28.2 MCHC 32.3 RDW 13.2 Plt Count 198 MPV 10.0 Immature Gran % (Auto) 0.3 Neut % (Auto) 69.3 Lymph % (Auto) 18.0 L [place] % (Auto) 9.6 Eos % (Auto) 2.5 Baso % (Auto) 0.3 Lymph # (Auto) 1.1 L [place] # (Auto) 0.6 Eos # (Auto) 0.2 Baso # (Auto) 0.0 Abs Immat Gran (auto) 0.02 Absolute Neuts (auto) 4.4 Absolute Nucleated RBC 0.000 Nucleated RBC % (auto) 0.0 Smear Tech's Comments Hold Blue Top Sodium 139 Potassium 4.7 Chloride 108 Carbon Dioxide 24 Anion Gap 12 BUN 21 H Creatinine 1.85 H Estim Creat Clear Calc 51.3 Estimated GFR 39 POC Glucose 107 Random Glucose 135 H Calcium 7.8 L D Magnesium Total Bilirubin Direct Bilirubin AST ALT Alkaline Phosphatase Total Protein Albumin Lipase Urine Color Urine Appearance Urine pH Ur Specific [place] Urine Protein Urine Glucose (UA) Urine Ketones Urine Blood Urine Nitrite Ur Leukocyte Esterase Urine RBC Urine WBC Ur Squamous Epith Cells Urine Bacteria COVID-19 (GUALBERTO) [employer] 11/01/20 11/01/20 08:52 12:15 WBC RBC Hgb Hct MCV MCH MCHC RDW Plt Count MPV Immature Gran % (Auto) Neut % (Auto) Lymph % (Auto) [place] % (Auto) Eos % (Auto) Baso % (Auto) Lymph # (Auto) [place] # (Auto) Eos # (Auto) Baso # (Auto) Abs Immat Gran (auto) Absolute Neuts (auto) Absolute Nucleated RBC Nucleated RBC % (auto) Smear Tech's Comments Hold Blue Top Sodium Potassium Chloride Carbon Dioxide Anion Gap BUN Creatinine Estim Creat Clear Calc Estimated GFR POC Glucose 136 H 118 H Random Glucose Calcium Magnesium Total Bilirubin Direct Bilirubin AST ALT Alkaline Phosphatase Total Protein Albumin Lipase Urine Color Urine Appearance Urine pH Ur Specific [place] Urine Protein Urine Glucose (UA) Urine Ketones Urine Blood Urine Nitrite Ur Leukocyte Esterase Urine RBC Urine WBC Ur Squamous Epith Cells Urine Bacteria COVID-19 (GUALBERTO) COVID-19 Clin Com Airway Mallampati Class: II TM Dist: >3cm Neck ROM: Full Loose/Missing/Broken Teeth: No Heart: [id number] Lungs: cta b/l Assessment and Plan Assessment Anesthesia Assessment: Anesthesia Plan Discussed and Chart Reviewed Final Anesthetic Review NPO: Yes ASA Class: II Final Preanesthetic Review: No Changes in Pt Med Stat, Meds/Allgs Chart Reviewed, Consent Obtained/Reviewed and Anes Risks/Benef Reviewed Patient Risk: Low Procedure Risk: Low Assessment/Block/Sedation in SS: Assess/Block/Sedation-SS Anesthetic Plan Anesthetic Plan: GA Disposition: Standard PACU
--- NOTE | 2020-11-01 13:00 | FL_ITS ---
EXAMINATION: Intraoperative fluoroscopy CLINICAL INFORMATION: Left kidney stone COMPARISON: CT abdomen pelvis 10/31/2020 TECHNIQUE: Intraoperative fluoroscopy was provided for use by Dr. Gregg. A total of 3 images were saved to PACS. A radiologist was not present during imaging. Today's dictation is only for administrative purposes to document intraoperative fluoroscopic usage. TOTAL FLUOROSCOPIC TIME: 31 seconds FL/FL guidance in OR FINDINGS~\^^ Intraoperative fluoroscopy provided for use by Dr. Gregg. Please see operative note for detailed findings.
--- NOTE | 2020-11-01 15:04 | PM.OP ---
Brief Operative Note Date of Service: 11/01/20 Pre-op diagnosis: Distal left ureteric stone Post-op diagnosis: same Procedure: Cystoscopy, retrograde, ureteroscopy, stent placement Implants: Six Swedish by 22 cm stent Surgeon: Peter Gregg MD Anesthesia: GLMA Estimated blood loss (mL): 0 Pathology: none sent Condition: stable Disposition: floor
--- NOTE | 2020-11-01 15:07 | P.DS_ITS ---
DS: Providers Provider Date of admission: 10/31/20 19:57 Primary care physician: Ani Juarez PA-C Consults: 10/31/20 19:57 Consult to Urology Routine Consulting Provider: Peter Gregg Reason for consultation: Obstructive uropathy Has provider been notified: Yes DS: Diagnosis Discharge Diagnosis (1) Hydronephrosis with renal calculous obstruction: Status: Acute (2) Acute kidney injury: Status: Acute DS: Medications Discharge Medications Home Medications: Home Medications Medication Instructions Recorded Confirmed metformin 1,000 mg PO BID 10/31/20 10/31/20 sitagliptin [Januvia] 100 mg PO DAILY 10/31/20 10/31/20 DS: Summary Hospital Course Hospital Course: Admission note HPI 54 y/o male with PMHx of DM and MARIO who presented from home due to abdominal pain. Per history provided by the patient, today woke up with a severe pain in the left side of his abdomen, none radiating, not associated with fever, chest pain, SOB or difficulty urinating. Patient denies any hx of previous kidney stones in the past. On presentation patient was noted to be hypertensive which improved with pain control to 131/71 mmHg and HR of 63. No evidence of fever, leukocytosis of 13.8 with left shift, creatinine of 1.58, CT abdomen showing left ureteral obstructing stone of 4 mm with associated hydroureteronephrosis and fat stranding, Ua negative for UTI. Patient was given one dose of Rocephin, flomax, fluids and pain control. 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 Patient seen and examined at the bedside, laying down in bed in no acute distress. ROS as above otherwise negative. Physical exam unremarkable. Hospital course The patient was admitted to the hospital for treatment of obstructive stone. His blood work was concerning for kidney injury which seems to be on top of chronic kidney disease. No clear baseline available the hospital. He was treated with Urology intervention and stent stone removal with placing a stent. He will be followed as outpatient with Dr. Gregg. He was noted as well to kidney injury with creatinine of 1.8. He preferred to leave the hospital and check his lab as outpatient as the source of obstruction removed. To be discharged home on antibiotic and pain medication to follow-up with urology as outpatient To repeat BMP next week Time Spent with Patient Time attestation: Total time spent providing and/or coordinating discharge services: Physical Exam Vital Signs: Vital Signs: Last Vital Signs Temp 96.8 F 11/01/20 14:13 Pulse 59 11/01/20 14:13 Resp 16 11/01/20 14:13 BP 149/74 H 11/01/20 14:13 Pulse Ox 95 11/01/20 14:13 Body Mass Index 32.8 Constitutional : Alert, oriented, not in distress Neck : Normal inspection, Supple Cardiovascular : RRR, S1 S2, no lower extremity edema Respiratory : Good bilateral air entry, no crackles, wheezes or rhonchi Gastrointestinal: soft, lax, Normal bowel sounds, Non tender Skin : Warm/Dry, No rash Neurological : Alert & oriented x3, No focal deficit DS: Data Data Completed and Pending Labs on day of discharge: 10/31/20 16:03 Ketorolac Tromethamine [Toradol] 15 mg IVPUSH ONCE ONE ondansetron HCL [Zofran] 4 mg IVPUSH ONCE ONE 10/31/20 16:15 0.9 % Sodium Chloride [Ns] 1,000 ml IVCONT 999 mls/hr 10/31/20 16:34 Basic Metabolic Panel Stat Complete Blood Count Auto Diff Stat Hold Lt Blue - Possible Coag Stat Lipase Stat Liver Panel Stat Magnesium Stat SLIDE REVIEW Stat 10/31/20 16:40 CT abdomen pelvis wo con Stat 10/31/20 19:18 Tamsulosin HCL [Flomax] 0.4 mg PO ONCE ONE cefTRIAXone sodium [Rocephin] 1 gm 0.9 % Sodium Chloride [Ns] 50 ml IV ONCE 10/31/20 19:30 0.9 % Sodium Chloride [Ns] 1,000 ml IVCONT 999 mls/hr 10/31/20 19:44 Transfer Order Routine 10/31/20 19:48 cefTRIAXone sodium [Rocephin] 1 gm .ROUTE .STK-MED ONE 10/31/20 20:09 COVID-19 ID NOW ([place]) Stat 10/31/20 21:01 Glucose, Whole Blood Routine 10/31/20 21:43 Ketorolac Tromethamine [Toradol] 15 mg IVPUSH ONCE ONE 11/01/20 06:56 Basic Metabolic Panel Routine Complete Blood Count Auto Diff Routine 11/01/20 08:52 Glucose, Whole Blood Routine 11/01/20 09:47 levoFLOXacin [Levaquin] 500 mg PO ONCE ONE 11/01/20 11:45 Lidocaine HCl 2 % MPF [Xylocaine 2 % MPF] 5 ml .ROUTE .STK-MED ONE Midazolam HCl/PF [Versed] 2 mg .ROUTE .STK-MED ONE fentaNYL citrate/PF [Sublimaze] 50 mcg .ROUTE .STK-MED ONE propofoL [Diprivan] 200 mg IVPUSH .STK-MED ONE 11/01/20 11:56 iohexoL 300 MG/ML [Omnipaque 300 MG/ML] 50 ml IV .STK-MED ONE 11/01/20 12:10 levoFLOXacin [Levaquin] 500 mg .ROUTE .STK-MED ONE 11/01/20 12:15 Glucose, Whole Blood Routine 11/01/20 12:22 Continuous pulse oximetry CONT Vital Signs Q1H Vital Signs Q5MIN 11/01/20 12:28 fentaNYL citrate/PF [Sublimaze] 50 mcg .ROUTE .STK-MED ONE 11/01/20 12:31 dexAMETHasone sod phosphate [Decadron] 4 mg .ROUTE .STK-MED ONE 11/01/20 12:41 ePHEDrine sulfate 50 mg .ROUTE .STK-MED ONE Laboratory Last Values WBC 6.4 X10*3/uL (4.8-10.8) 11/01/20 06:56 RBC 4.39 X10*6/uL (4.60-5.80) L 11/01/20 06:56 Hgb 12.4 g/dl (14.0-18.0) L 11/01/20 06:56 Hct 38.4 % (42-52) L 11/01/20 06:56 MCV 87.5 fL (80-98) 11/01/20 06:56 MCH 28.2 pg (27.0-33.0) 11/01/20 06:56 MCHC 32.3 g/dl (31.0-36.0) 11/01/20 06:56 RDW 13.2 % (11.0-16.0) 11/01/20 06:56 Plt Count 198 X10*3/uL (160-400) 11/01/20 06:56 MPV 10.0 fL (9.4-12.4) 11/01/20 06:56 Immature Gran % (Auto) 0.3 % (0.0-0.4) 11/01/20 06:56 Neut % (Auto) 69.3 % (45-73) 11/01/20 06:56 Lymph % (Auto) 18.0 % (20-40) L 11/01/20 06:56 [place] % (Auto) 9.6 % (2-11) 11/01/20 06:56 Eos % (Auto) 2.5 % (0-4) 11/01/20 06:56 Baso % (Auto) 0.3 % (0-2) 11/01/20 06:56 Lymph # (Auto) 1.1 X10*3/uL (1.2-4.9) L 11/01/20 06:56 [place] # (Auto) 0.6 X10*3/uL (0.1-1.2) 11/01/20 06:56 Eos # (Auto) 0.2 X10*3/uL (0.0-0.4) 11/01/20 06:56 Baso # (Auto) 0.0 X10*3/uL (0.0-0.2) 11/01/20 06:56 Abs Immat Gran (auto) 0.02 X10*3/uL (0.00-0.03) 11/01/20 06:56 Absolute Neuts (auto) 4.4 X10*3/uL (2.0-8.3) 11/01/20 06:56 Absolute Nucleated RBC 0.000 X10*3/uL (0.0-0.012) 11/01/20 06:56 Nucleated RBC % (auto) 0.0 /100WBC (0.0-0.2) 11/01/20 06:56 Smear Tech's Comments VERIFIED 10/31/20 16:34 Hold Blue Top SEE NOTE 10/31/20 16:34 Sodium 139 mmol/L (135-145) 11/01/20 06:56 Potassium 4.7 mmol/l (3.3-5.1) 11/01/20 06:56 Chloride 108 mmol/L (96-108) 11/01/20 06:56 Carbon Dioxide 24 mmol/L (22-29) 11/01/20 06:56 Anion Gap 12 (12-20) 11/01/20 06:56 BUN 21 mg/dL (9-16) H 11/01/20 06:56 Creatinine 1.85 mg/dL (0.5-1.4) H 11/01/20 06:56 Estim Creat Clear Calc 51.3 11/01/20 06:56 Estimated GFR 39 11/01/20 06:56 POC Glucose 118 mg/dL (60-115) H 11/01/20 12:15 Random Glucose 135 mg/dL (60-115) H 11/01/20 06:56 Calcium 7.8 mg/dL (8.4-10.2) L D 11/01/20 06:56 Magnesium 1.7 mg/dL (1.6-2.6) 10/31/20 16:34 Total Bilirubin 1.0 mg/dL (0.0-1.0) 10/31/20 16:34 Direct Bilirubin 0.4 mg/dL (0.0-0.5) 10/31/20 16:34 AST 30 U/L (5-37) 10/31/20 16:34 ALT 65 U/L (0-40) H 10/31/20 16:34 Alkaline Phosphatase 71 U/L (39-117) 10/31/20 16:34 Total Protein 7.3 g/dL (6.5-8.0) 10/31/20 16:34 Albumin 4.6 g/dL (3.5-5.0) 10/31/20 16:34 Lipase 22 U/L (8-78) 10/31/20 16:34 Urine Color YELLOW 10/31/20 16:34 Urine Appearance CLEAR 10/31/20 16:34 Urine pH 5.5 (5.0-8.0) 10/31/20 16:34 Ur Specific [place] >= 1.030 (1.005-1.025) H 10/31/20 16:34 Urine Protein NEG MG/DL (NEG-TRACE) 10/31/20 16:34 Urine Glucose (UA) 100 MG/DL (NEG) H 10/31/20 16:34 Urine Ketones NEG MG/DL (NEG) 10/31/20 16:34 Urine Blood 2+ (NEG) H 10/31/20 16:34 Urine Nitrite NEG (NEG) 10/31/20 16:34 Ur Leukocyte Esterase NEG (NEG) 10/31/20 16:34 Urine RBC 5-9 /HPF (0) H 10/31/20 16:34 Urine WBC 0 /HPF (0-4) 10/31/20 16:34 Ur Squamous Epith Cells TRACE /LPF 10/31/20 16:34 Urine Bacteria NONE /LPF 10/31/20 16:34 COVID-19 (GUALBERTO) Negative (Negative) 10/31/20 20:09 COVID-19 Clin Com See Note 10/31/20 20:09 Discharge Plan Discharge Patient Disposition: Home, Self-Care Referrals: Ani Juarez PA-C [Primary Care Provider] - Discharge Medications: New tramadol 50 mg tablet 50 mg PO Q6H PRN (Reason: pain) Qty: 14 RF: 0 tamsulosin 0.4 mg capsule 0.4 mg PO BEDTIME Qty: 14 RF: 0 ciprofloxacin HCl 500 mg tablet 500 mg PO BID 5 Days Qty: 10 RF: 0 tramadol 50 mg Tablet 50 mg PO Q6H PRN (Reason: Pain, Moderate (Pain Scale 4-6) Qty: 14 RF: 0 Continued metformin 1,000 mg Tablet 1,000 mg PO BID RF: 0 Januvia 100 mg Tablet 100 mg PO DAILY RF: 0 Discharge Orders: Discharge Order (Routine); Ordered 11/01/20 Ordered By: Mirna Vann Diet: advance to usual diet Activity on Discharge: As tolerated Other Ambulatory Orders: Basic Metabolic Panel (Routine) Timeframe: 1 Week Facility: [facility] - Location: Laboratory Ordered By: Mirna Vann Visit Report Forms: Patient Portal Discharge page Care Plan Goals: Read below Health Concerns: Read below Plan of Treatment: You were admitted to the hospital for evaluation of abdominal pain. Images were consistent with left-sided obstructive stone in your ureter with associated kidney injury. You were evaluated by urologist who removed the stone and place a stent in the affected area. To be discharged on antibiotics. To check your urine test next week To follow with Dr. Gregg in office next week for stent removal Please come back to the hospital for any worsening pain, fever or blood with urine
--- NOTE | 2020-11-01 15:12 | W.PM.OPN ---
Operative Note Operative Note Date of Service: 11/01/20 Narrative: PreOperative Diagnosis: Left distal ureteric stone Post Operative Diagnosis: Left distal ureteric stone with hydronephrosis Procedure: Left side - cystoscopy, retrograde - dilatation of ureteric orifice under fluoroscopy - ureteroscopy, - stent placement Surgeon: Dr Peter Gregg Anesthesia: General Indications for procedure: 54-year-old male. Presented with a distal left ureteric stone. Pain anterior left abdomen down to groin. First-time his stones. Did not think stone had passed. Recommend intervention. Would suggest needs stent even if stone not found since has hydronephrosis on imaging. Procedure: After informed consent was verified patient was brought to the operating placed in supine position. Anesthesia was administered per protocol. Patient was placed in modified dorsal lithotomy position and prepped and draped in a sterile fashion. Safety pause time-out and side of surgery confirmed. Antibiotics confirmed. Twenty-two Greek cystoscope inserted per urethra. No abnormality noted in the anterior posterior urethra. Bladder was entered. Both ureteric orifices normal position. Left ureteric orifice appears to be edematous with some degree of inflammation presume secondary to stone. Retrograde examination is attempted. Unable to advance catheter into ureter did due to restriction. Sensor guidewire placed. Catheter advanced. Retrograde performed. Did have hydroureteronephrosis down to the level of bladder. Jadiel dilator used to dilate ureteric orifice. Semi rigid ureteral scope placed. Advanced alongside the wire. No stone definitively counted. Did have narrowing edema of ureteric orifice. There were some fragments at the outlet of the orifice so stone may have passed during manipulation with Jadiel dilator. Decision made to place stent. Six Greek by 24 cm stent placed. Bladder was emptied. Tolerated procedure well was extubated in operating room transferred in stable condition to the recovery area Pathology: None Drains: 6 Greek by 24 cm stent
--- NOTE | 2020-11-01 15:50 | MHC.CM.PN ---
pt being discharged home today with no services Pt will self arrange transportation
[2020-11-01] MEDS: Phenazopyridine HCL 100 MG TABLET PO (16:02)
== END 2020-11-01 16:40 | disposition home or self-care (01) | DRG 465 ==
LOC: HO.ED 20:12 → HO.S3 11-01 05:27
PROVIDERS: Physician Assistant; Urology; Admitting Provider Internal Medicine; Emergency Provider Internal Medicine; PCP Physician Assistant Medical; Visit Provider Student in an Organized Health Care Education/Training Program
PROC: BT1FZZZ Fluoroscopy of Left Kidney, Ureter and Bladder (ICD-10-PCS; principal; 2020-11-01 10:30)
DX: N13.2 Hydronephrosis with renal and ureteral calculous obstruction (principal); N17.9 Acute kidney failure, unspecified; E11.9 Type 2 diabetes mellitus without complications; F17.210 Nicotine dependence, cigarettes, uncomplicated; Z20.828 Contact with and (suspected) exposure to other viral communicable diseases; Z71.6 Tobacco abuse counseling; Z79.84 Long term (current) use of oral hypoglycemic drugs; Z79.899 Other long term (current) drug therapy; G47.33 Obstructive sleep apnea (adult) (pediatric)
CPT/HCPCS: 36415; 74176; 80048; 80076; 81001; 82947; 83690; 83735; 85025; 87635; 96361; 96365; 96375; 99285; C1758; C1769; C2617; J0696; J1100; J1885; J2250; J2405; J3010; Q9967

== ENCOUNTER → 2020-11-17 11:01 | Outpatient (BNVA) | payer MEDICAID, SELFPAY | PROVIDERS: Visit Provider Urology | DX: N20.0 Calculus of kidney (principal); Z46.6 Encounter for fitting and adjustment of urinary device; Z87.891 Personal history of nicotine dependence | CPT/HCPCS: 52000; 52310; 99212 ==

== ENCOUNTER 2020-12-06 08:30 | Outpatient (REF) | payer MEDICAID, SELFPAY ==
--- NOTE | 2020-12-06 08:33 | US_ITS ---
EXAMINATION: US RETROPERITONEAL LIMITED (RENAL ONLY) CLINICAL INFORMATION: Calculus of kidney. COMPARISON: CT abdomen and pelvis without contrast dated 10/31/2020. TECHNIQUE: Real-time imaging of the kidneys. FINDINGS: RIGHT KIDNEY: 12.0 x 7.0 x 6.5 cm (SAG x AP x TRV). The kidney is normal in size, contour, and echogenicity. Renal cortical thickness is normal. There is a 2 x 1.7 x 2 cm peripelvic cyst in the midpole. No renal calculi or hydronephrosis. LEFT KIDNEY: 13.0 x 6.4 x 5.9 cm (SAG x AP x TRV). The kidney is normal in size, contour, and echogenicity. Renal cortical thickness is normal. No calculi or focal parenchymal lesions. No hydronephrosis. US/US renal BI IMPRESSION: No stone seen. Right renal cyst..
== END 2020-12-06 08:31 | disposition home or self-care (01) ==
LOC: HO.US 08:30
PROVIDERS: Visit Provider Urology
DX: N20.0 Calculus of kidney (principal)
CPT/HCPCS: 76775

== ENCOUNTER → 2020-12-21 11:21 | Outpatient (BNVA) | payer MEDICAID, SELFPAY | PROVIDERS: PCP Physician Assistant Medical; Visit Provider Urology ==

== ENCOUNTER 2021-01-05 10:17 | Outpatient (REF) | payer MEDICAID, SELFPAY ==
[2021-01-10 19:01] LABS: URO-Brushite 24 Hr Urine 0.05 (<2.00); URO-Calcium 24 Hr Urine 33 mg/day (<250.0); URO-Calcium Oxalat 24 Hr Urine 0.14 (<2.00); URO-Citric Acid 24 Hr Urine 1007 mg/day (>320); URO-Creatinine 24 Hr Urine 1555 mg/day (800-2000); URO-Magnesium 24 Hr Urine 84 mg/day (>60.0); URO-Oxalate 24 Hr Urine 49 mg/day (<45); URO-Phosphorus 24 Hr Urine 1412 mg/day (<1100); URO-Potassium 24 Hr Urine 104 mEq/day (19-135); URO-Sodium 24 Hr Urine 242 mEq/day (<200); URO-Sodium Urate 24 Hr Urine 1.22 (<2.00); URO-Sulfate 24 Hr Urine 25 mmol/day (<30); URO-Total Volume 3.37 L/day (>2.00); URO-Uric Acid 24 Hr Urine 1.55 (<2.00); URO-Uric Acid 24 Hr Urine 876 mg/day (<700); URO-pH 24 Hr Urine 5.8 (5.5-7.0)
== END 2021-01-05 10:18 | disposition home or self-care (01) ==
LOC: HO.LNP 10:17
PROVIDERS: Visit Provider Urology
DX: N20.0 Calculus of kidney (principal)
CPT/HCPCS: 82340; 82507; 82570; 83735; 83945; 83986; 84105; 84133; 84300; 84392; 84560

== ENCOUNTER 2021-07-18 14:06 | Outpatient (REF) | payer MEDICAID, SELFPAY ==
--- NOTE | ~2021-07-18 | US_ITS ---
EXAMINATION: US RETROPERITONEAL LIMITED (RENAL ONLY) CLINICAL INFORMATION: Calculus of kidney. COMPARISON: Ultrasound renal 12/06/2020. CT abdomen pelvis 10/31/2020. TECHNIQUE: Real-time imaging of the kidneys. FINDINGS: RIGHT KIDNEY: 12.4 x 7.2 x 5.8 cm (SAG x AP x TRV). The kidney is normal in size, contour, and echogenicity. Renal cortical thickness is normal. There is a 2.3 x 1.8 x 1.9 cm peripelvic cyst. This is similar to previous exam. LEFT KIDNEY: 12.5 x 7.0 x 5.1 cm (SAG x AP x TRV). The kidney is normal in size, contour, and echogenicity. Renal cortical thickness is normal. No calculi or focal parenchymal lesions. No hydronephrosis. US/US renal BI IMPRESSION: Right renal cyst. No stone seen.
== END 2021-07-18 14:07 | disposition home or self-care (01) ==
LOC: HO.US 14:06
PROVIDERS: PCP Physician Assistant Medical; Visit Provider Urology
DX: N20.0 Calculus of kidney (principal)
CPT/HCPCS: 76775

== ENCOUNTER → 2021-10-05 12:15 | Outpatient (BNVA) | payer MEDICAID, SELFPAY | PROVIDERS: PCP Physician Assistant Medical; Visit Provider Urology ==